=== PATIENT | female | born 1990 | race Two or more races ===

== ENCOUNTER 2016-07-16 20:59 | Emergency (ER) | payer MEDICAID ==
[~2016-07-16] VITALS: Ht 154.9 cm; Wt 44.5 kg
[2016-07-16 21:15] VITALS: BP 122/80
[2016-07-16] MEDS ORDERED: ACYCLOVIR400 MG ORAL (21:41)
--- NOTE | 2016-07-16 21:42 | Emergency Room Report ---
History of Present Illness General Chief Complaint: General Complaint Source: Patient Present Illness HPI Is a 26-year-old female with a history of herpes in the past. She presents with chief complaint of palpitation general herpes. Onset for last 2 days. Burning sensation. Rash. Denies any fever or chills. Similar symptom 2 months ago. Was on Cipro. Then. No fever or chills but no nausea no vomiting. Denies any current sexual activity. Allergies: Coded Allergies: No Known Allergies (Unverified , 07/16/16) Patient History Past Medical History: see triage record, old chart reviewed Past Surgical History: other Pertinent Family History: none Social History: Reports: drug use Now: No Immunizations: other Reviewed Nursing Documentation: PMH: Agreed, PSxH: Agreed Nursing Documentation-PMH Past Medical History: No Stated History Review of Systems Eye: Denies: blurred vision, eye pain ENT: Denies: ear pain, nose congestion, throat swelling Respiratory: Denies: cough, shortness of breath Cardiovascular: Denies: chest pain, palpitations Gastrointestinal: Denies: abdominal pain, diarrhea, nausea, vomiting Musculoskeletal: Denies: back pain, joint pain Skin: Denies: rash Neurological: Denies: headache, numbness Endocrine: Denies: increased thirst, increased urine Hematologic/Lymphatic: Denies: easy bruising All Other Systems: negative except mentioned in HPI Physical Exam Vital Signs Date Time Temp Pulse Resp B/P Pulse Ox O2 Delivery O2 Flow Rate FiO2 07/16/16 21:07 97.9 119 20 122/80 100 Room Air vitals normal Sp02 EP Interpretation: reviewed, normal General Appearance: well appearing, no apparent distress, alert Head: normocephalic, atraumatic Eyes: bilateral eye EOMI, bilateral eye PERRL ENT: hearing grossly normal, normal pharynx Neck: full range of motion, supple, no meningismus Respiratory: chest non-tender, lungs clear, normal breath sounds Cardiovascular #1: regular rate, rhythm, no murmur Gastrointestinal: normal bowel sounds, non tender, no mass, no organomegaly, no bruit, non-distended Genitourinary: deferred - At patient's request Musculoskeletal: back normal, gait/station normal, normal range of motion Psychiatric: mood/affect normal Skin: warm/dry Medical Decision Making Diagnostic Impression: Primary Impression: Herpes genitalis in women ER Course Patient presents with symptoms of herpes genitalis. She had this before. She does not want to do a pelvic exam. We'll discharge home with prescription in for acyclovir. Last Vital Signs Date Time Temp Pulse Resp B/P Pulse Ox O2 Delivery O2 Flow Rate FiO2 07/16/16 21:15 97.9 119 20 122/80 100 Room Air Status: improved Disposition: HOME, SELF-CARE Condition: Stable Scripts Acyclovir* (ACYCLOVIR*) 400 Mg Tablet 400 MG ORAL FIVE TIMES A DAY, #35 TAB Prov: NAOMI LARA M.D. 07/16/16 Additional Instructions: Follow up with your doctor in 7 days. Return if worse. NAOMI LARA M.D. Jul 16, 2016 21:42
[2016-07-16 21:51] VITALS: BP 122/80
== END 2016-07-16 21:55 | disposition home or self-care (01) ==
LOC: EMR 21:35
DX: A60.00 Herpesviral infection of urogenital system, unspecified (principal)
CPT/HCPCS: 99282